=== PATIENT | male | born 1960 | race Caucasian/White ===

== ENCOUNTER 2021-10-11 12:32 | Emergency (ER) | payer OTHER, SELFPAY ==
[2021-10-11 12:38] VITALS: BP 133/71; PULSE 81; RESP 18; O2SAT 96; BMI 25.1
[2021-10-11 12:47] VITALS: BP 135/84; PULSE 90; RESP 18; O2SAT 98
--- NOTE | 2021-10-11 12:55 | ED_ITS ---
HPI - General Adult General: Chief complaint: General Medical Stated complaint: HYPOTENSION, ABD PAIN Time Seen by Provider: 10/11/21 12:39 History of Present Illness: Mr. Laguerre is a 61-year-old gentleman with history of hypertension, hyperlipidemia, diabetes who presents to the emergency department due to abdominal discomfort. He reports a few week history of symptoms which was subacute in onset. Since that time he has had intermittent episodes of right lower quadrant abdominal pain and most recently associated with constipation. He treated his symptoms with [id number] medications and has had bowel movement which mildly improved symptoms. Aching and twisting in quality, moderate to severe in intensity at worst. Nausea but no vomiting. No blood in stool. No urinary symptoms or radiation to the testicles. Does have a history of abdominal surgeries. Onset (ago): week(s) Severity: moderate Quality: aching and other Associated symptoms: Reports nausea Review of Systems General: Reports: 10 or more systems reviewed and unremarkable except in HPI and below GI: Reports: nausea [facility] ED PFSH: Medical History No significant past medical history Surgical History No significant past surgical history Physical Exam Const: COMMON NORMALS: alert GENERAL APPEARANCE: cooperative and well developed HENMT: COMMON NORMALS: normocephalic and atraumatic HEAD & SCALP: normocephalic and atraumatic Eye: COMMON NORMALS: conjunctivae normal CONJUNCTIVA: Yes conjunctivae normal SCLERA: sclerae normal Neck/C-Spine: COMMON NORMALS: supple GENERAL: Yes trachea midline Resp: COMMON NORMALS: clear to auscultation bilaterally EFFORT & INSPECTI ON: Yes able to speak in complete sentences AUSCULTATION: clear to auscultation bilaterally Cardio: COMMON NORMALS: regular rate and regular rhythm RATE: regular rate RHYTHM: regular rhythm GI: COMMON NORMALS: Soft to palpation PALPATION: Yes Soft to palpation, Yes Tenderness to palpation present (GI), No Guarding due to palpation present (GI) and No Rigid due to palpation PERCUSSION: normal to percussion Extremity: GENERAL: Yes normal exam except as noted and No edema Neuro: COMMON NORMALS: moves all extremities SENSORIUM/ORIENTATION: Yes alert and No Orientation impaired Psych: COMMON NORMALS: mental status grossly normal and Normal thought process present THOUGHT PROCESS: Normal thought process present Course ED course: - Patient was seen and evaluated by me at bedside - Patient placed on cardiac monitors, IV access obtained - Initial evaluation notable for exam as above. - Labs personally interpreted by me. EKG personally reviewed by me showing sinus rhythm with no STEMI. -Fluids and muscle relaxants ordered - Labs notable for minimal leukocytosis, normal hemoglobin. Metabolic panel with mild evidence of dehydration. Urinalysis nitrate positive though no bacteria or other acute abnormality identified. - Imaging notable for no acute abnormality to explain patient's symptoms on CT scan. - Upon serial reexamination after treatment the patient was improved. Tolerated p.o. intake. - Based on patient history, evaluation, and testing as interpreted the most likely cause of the patient's condition is dehydration and abdominal pain of uncertain etiology. - The results of ED evaluation were discussed with the patient including prescriptions and/or symptomatic cares (if applicable) including appropriate and responsible use, followup plan, and return precautions. The patient verbalized understanding and felt safe for discharge. - Patient discharged in satisfactory condition. Note: Click bubbles or prepopulated holley in note writing are used for assistance with data collection and billing and are inherently more limited than narrative and other text portions of this note. Please use narrative for additional clinical history and defer to narrative/free test for any case of contradictory information. If information appears in only free text or click bubble it should be considered present or absent as reported. Please contact note fha underwriter for clarifications of clinical information or contradictory information. MDM is a brief summary, contradictory or erroneous seeming information should be clarified and full note should be reviewed. Vital Signs: Vital signs: Vital Signs Pulse Rate 88 10/11/21 16:11 Respiratory Rate 18 10/11/21 16:11 Blood Pressure 190/109 10/11/21 16:11 Pulse Oximetry 95 10/11/21 16:11 MDM - General Adult Medical Decision Making 61-year-old gentleman presenting to the emergency department due to abdominal pain. No acute cause identified on CT. Labs notable for dehydration though patient tolerated p.o. intake. Satisfactory for outpatient management. Medical Records I reviewed the patient's medical records. Lab Data I reviewed the patient's lab results. : 10/11/21 12:20 10/11/21 12:20 Radiology Impressions Abdomen/Pelvis CT 10/11/21 14:19 IMPRESSION: 1. Prior appendectomy. 2. No renal stone or obstruction. 3. Minimal air distention of the colon with no obstruction. 4. Prior cholecystectomy. Laboratory Results WBC 10.5 10^3/uL (4.0-10.0) H 10/11/21 12:20 RBC 4.86 10^6/uL (4.1-5.3) 10/11/21 12:20 Hgb 14.6 g/dL (11.7-16.6) 10/11/21 12:20 Hct 42.0 % (42.0-52.0) 10/11/21 12:20 MCV 86.4 fl (80-94) 10/11/21 12:20 MCH 30.0 pg (28.0-34.0) 10/11/21 12:20 MCHC 34.8 g/dL (30.0-36.0) 10/11/21 12:20 RDW 12.9 % (12.1-15.1) 10/11/21 12:20 Plt Count 247 10^3/cmm (130-400) 10/11/21 12:20 MPV 10.2 fL (7.4-10.4) 10/11/21 12:20 Neut % (Auto) 67.6 % 10/11/21 12:20 Lymph % (Auto) 23.2 % 10/11/21 12:20 [place] % (Auto) 7.0 % 10/11/21 12:20 Eos % (Auto) 1.7 % 10/11/21 12:20 Baso % (Auto) 0.2 % 10/11/21 12:20 Neut # (Auto) 7.09 10^3/uL (1.8-7.7) 10/11/21 12:20 Lymph # (Auto) 2.4 10^3/uL (0.8-4.8) 10/11/21 12:20 [place] # (Auto) 0.7 10^3/uL (0.2-0.9) 10/11/21 12:20 Eos # (Auto) 0.2 10^3/uL (0.0-0.8) 10/11/21 12:20 Baso # (Auto) 0.0 10^3/uL (0.0-0.1) 10/11/21 12:20 Nucleated RBC % (auto) 0 % 10/11/21 12:20 Nucleated RBCs # 0.0 /100WBC 10/11/21 12:20 Sodium 131 mmol/L (136-145) L 10/11/21 12:20 Potassium 4.5 mmol/L (3.5-5.1) 10/11/21 12:20 Chloride 96 mmol/L (98-107) L 10/11/21 12:20 Carbon Dioxide 22 mmol/L (22-29) 10/11/21 12:20 Anion Gap 17.5 (5-19) 10/11/21 12:20 BUN 24 mg/dL (8-23) H 10/11/21 12:20 Creatinine 1.3 mg/dL (0.7-1.2) H 10/11/21 12:20 GFR Calculation 56.1 mL/min (90-130) L 10/11/21 12:20 Glucose 154 mg/dL (65-115) H 10/11/21 12:20 Calculated Osmolality 279 mOsm/kg (285-295) L 10/11/21 12:20 Lactate 1.0 mmol/L (0.5-2.2) 10/11/21 13:56 Calcium 9.7 mg/dL (8.5-10.5) 10/11/21 12:20 Total Bilirubin 0.3 mg/dL (0.15-1.2) 10/11/21 12:20 AST 12 U/L (0-40) 10/11/21 12:20 ALT 17 U/L (0-41) 10/11/21 12:20 Alkaline Phosphatase 80 IU/L (40-130) 10/11/21 12:20 Total Protein 8.1 g/dL (6.6-8.7) 10/11/21 12:20 Albumin 4.4 g/dL (3.5-5.2) 10/11/21 12:20 Globulin 3.7 g/dL (1.3-4.6) 10/11/21 12:20 Lipase 114 U/L (13-60) H 10/11/21 12:20 Urine Color Yellow (Yellow) 10/11/21 14:39 Urine Appearance Clear (CLEAR) 10/11/21 14:39 Urine pH 6.5 (5-7) 10/11/21 14:39 Ur Specific [place] 1.020 (1.005-1.030) 10/11/21 14:39 Urine Protein Neg (Negative) 10/11/21 14:39 Urine Glucose (UA) Norm (Normal) 10/11/21 14:39 Urine Ketones Negative (Negative) 10/11/21 14:39 Urine Blood Neg (Negative) 10/11/21 14:39 Urine Nitrate Positive (Negative) H 10/11/21 14:39 Urine Bilirubin Neg (Negative) 10/11/21 14:39 Urine Urobilinogen Norm mg/dL (Negative) 10/11/21 14:39 Ur Leukocyte Esterase Trace (Negative) H 10/11/21 14:39 Urine RBC 0-4 /hpf (0-2) H 10/11/21 14:39 Urine WBC 0-4 /hpf (0-5) H 10/11/21 14:39 Ur Squamous Epith Cells 0-4 /hpf (0-5) H 10/11/21 14:39 Amorphous Sediment Not Reportable 10/11/21 14:39 Urine Bacteria Trace /hpf (NONE) 10/11/21 14:39 Urine Mucus N /hpf 10/11/21 14:39 Discharge Plan Discharge Patient Disposition: Home Clinical Impression: Abdominal pain, Dehydration Condition: Stable Prescriptions: No Action ibuprofen 800 mg Tablet 800 mg PO TID PRN (Reason: Pain) 0RF tramadol 50 mg Tablet 50 mg PO Q4H PRN (Reason: Pain) 0RF metformin 1,000 mg Tablet 1,000 mg PO DAILY 0RF lidocaine 5 % Adhesive Patch,Medicated 1 patch TOPICAL DAILY 0RF Rx Instructions: leave on most painful area for up to 12 hrs albuterol sulfate 90 mcg/actuation Hfa Aerosol Inhaler 2 puff INHALATION QID PRN (Reason: Shortness Of Breath) 0RF lisinopril 40 mg Tablet 40 mg PO DAILY 0RF glipizide 5 mg Tablet 5 mg PO BID 0RF promethazine 25 mg tablet 25 mg PO Q6H PRN (Reason: nausea and vomiting) Qty: 20 0RF Discharge Orders: Discharge ED (Routine); Ordered 10/11/21 Ordered By: Darryn Palm Referrals: Iva Crook FNP [Primary Care Provider] - Discharge Diet: Advance as tolerated and Clear Liquid Discharge Activity: Increase activity as tolerated Patient Instructions: Abdominal Pain (ED), Opioid Safety Activity Restrictions/Additional Instructions: Thank you for visiting the emergency department. You were seen and evaluated for abdominal pain. The exact cause of your symptoms is unclear, it is most likely related to your constipation with resolved with [id number] treatment. You were found to be mildly dehydrated, please ensure that you are staying hydrated and have repeat labs drawn in 1 week to ensure improvement. Please follow-up with your primary care provider. Please keep your scheduled appointment for endoscopy. Please return to the emergency department for worsening symptoms or anything else that you are concerned about and feel needs emergency department evaluation. Coding Level of Care Code ED Farm Management Professor for Charlie Hillman
[2021-10-11 13:17] VITALS: BP 130/93; PULSE 85; O2SAT 97
[2021-10-11 13:34] LABS: Basophils % 0.2 %; Eosinophils # 0.2 10^3/uL (0.0-0.8); Eosinophils % 1.7 %; Hemoglobin 14.6 g/dL (11.7-16.6); Lymphocytes # 2.4 10^3/uL (0.8-4.8); Lymphocytes % 23.2 %; Mean Corpuscular HGB Conc 34.8 g/dL (30.0-36.0); Mean Corpuscular Volume 86.4 fl (80-94); Mean Platelet Volume 10.2 fL (7.4-10.4); Monocytes # 0.7 10^3/uL (0.2-0.9); Neutrophils # 7.09 10^3/uL (1.8-7.7); Neutrophils % 67.6 %; Nucleated Red Blood Cells % 0 %; Platelet Count 247 10^3/cmm (130-400); Red Blood Count 4.86 10^6/uL (4.1-5.3); Red Cell Distribution Width 12.9 % (12.1-15.1); White Blood Count 10.5 10^3/uL (4.0-10.0)
--- NOTE | 2021-10-11 13:35 | ECG_ITS ---
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 Measurements Intervals [place] Rate: 75 P: 58 AL: 150 QRS: 76 QRSD: 93 T: 64 QT: 373 QTc: 417 Interpretive Statements SINUS RHYTHM POSSIBLE RIGHT VENTRICULAR CONDUCTION DELAY [RSR (QR) IN V1/V2] No previous ECG available for comparison Electronically Signed On 10-12-2021 0:20:39 CDT by Susanna Locke M.D. [id number]
[2021-10-11] MEDS: diazePAM 5 mg Tablet PO (13:53)
[2021-10-11 13:54] LABS: Alanine Aminotransferase 17 U/L (0-41); Albumin Level 4.4 g/dL (3.5-5.2); Alkaline Phosphatase 80 IU/L (40-130); Anion Gap 17.5 (5-19); Aspartate Amino Transferase 12 U/L (0-40); Blood Urea Nitrogen 24 mg/dL (8-23); Calcium 9.7 mg/dL (8.5-10.5); Carbon Dioxide 22 mmol/L (22-29); Chloride 96 mmol/L (98-107); Globulin 3.7 g/dL (1.3-4.6); Glomerular Filtration Rate 56.1 mL/min (90-130); Glucose 154 mg/dL (65-115); Lipase 114 U/L (13-60); Osmolality Calculated 279 mOsm/kg (285-295); Potassium 4.5 mmol/L (3.5-5.1); Sodium 131 mmol/L (136-145); Total Bilirubin 0.3 mg/dL (0.15-1.2); Total Protein 8.1 g/dL (6.6-8.7)
[2021-10-11 14:00] VITALS: BP 135/84; PULSE 80; O2SAT 99
--- NOTE | 2021-10-11 14:19 | CT_ITS ---
WS: [id number] CT ABDOMEN AND PELVIS NONCONTRAST HISTORY: RLQ pain TECHNIQUE: Imaging performed through the abdomen and pelvis. Coronal and sagittal reformats are submi tted. All CT scans at [facility] use at least one of these dose optimization techniques: auto mated exposure control; mA and/or kV adjustment per patient size (includes targeted exams where dose is matched to clinical indication); or iterative reconstruction. DLP: 1505.99 mGy.cm COMPARISON: 11/25/2018 Lower thorax: Fibrotic changes at the lung bases. Heart is normal size. No hiatal hernia. Liver: Normal size liver. No mass or bile duct dilatation. Gallbladder: Prior cholecystectomy. Pancreas: Normal size and attenuation. Normal pancreatic duct. No pancreatitis or mass. Spleen: Spleen is top normal size at 12.9 cm in length. Similar to prior studies. Adrenal glands: Normal. No mass. Right kidney: Normal size kidney with no mass or hydronephrosis. Left kidney: Normal size kidney with no mass or hydronephrosis. Aorta: Mild atherosclerosis abdominal aorta with no aneurysm. No free fluid, intraperitoneal air or significant lymphadenopathy. GI tract: Prior appendectomy. No inflammatory changes in the RIGHT lower quadrant. Mild fluid distent ion of the stomach. No small bowel obstruction. There is a mild increased amount of air throughout th e colon but no obstruction. No mucosal thickening. Abdominal wall: Negative. No hernia. Pelvis: No free fluid in the pelvis. No adenopathy. Urinary bladder is well distended. Osseous structures: Moderate spondylitic changes in the lumbar spine. CT/CT abdomen pelvis wo con [id number] IMPRESSION: 1. Prior appendectomy. 2. No renal stone or obstruction. 3. Minimal air distention of the colon with no obstruction. 4. Prior cholecystectomy.
[2021-10-11 14:59] LABS: Leukocyte Esterase Urine Trace (Negative); Urine Appearance Clear (CLEAR); Urine Color Yellow (Yellow); pH Urine 6.5 (5-7)
[2021-10-11 15:00] VITALS: BP 143/96; PULSE 89; O2SAT 97
[2021-10-11 15:00] LABS: Add Urine Microscopic? YES; Bilirubin Urine Neg (Negative); Blood Urine Neg (Negative); Glucose Urine UA Norm (Normal); Ketones Urine Negative (Negative); Nitrate Urine Positive (Negative); Protein Urine Neg (Negative); Urobilinogen Urine Norm (Negative)
[2021-10-11 15:03] LABS: RBC Urine 0-4 /hpf (0-2); WBC Urine 0-4 /hpf (0-5)
[2021-10-11 15:05] LABS: Bacteria Urine TRACE /hpf; Mucus Urine N /hpf; Squamous Epithelial Cell Urine 0-4 /hpf (0-5)
[2021-10-11 15:06] LABS: Add Urine Culture? Yes
[2021-10-11] MEDS: sodium chloride 0.9% 1,000 ML 999 ML IV (15:12)
[2021-10-11 16:11] VITALS: BP 190/109; PULSE 88; RESP 18; O2SAT 95
== END 2021-10-11 16:05 | disposition home or self-care (01) ==
PROVIDERS: Emergency Provider Emergency Medicine; PCP Nurse Practitioner
DX: R10.9 Unspecified abdominal pain (principal); E86.0 Dehydration
CPT/HCPCS: 36415; 74176; 80053; 81001; 83605; 83690; 85025; 87040; 87086; 93005; 96360; 99284; J7030

== ENCOUNTER 2021-10-15 12:28 | Emergency (ER) | payer OTHER, SELFPAY ==
--- NOTE | 2021-10-15 12:31 | ECG_ITS ---
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 Measurements Intervals [place] Rate: 79 P: 61 W[place]: 148 QRS: 75 QRSD: 92 T: 71 QT: 374 QTc: 429 Interpretive Statements SINUS RHYTHM POSSIBLE RIGHT VENTRICULAR CONDUCTION DELAY [RSR (QR) IN V1/V2] Compared to ECG 10/11/2021 13:43:51 No significant changes Electronically Signed On 10-15-2021 17:36:33 CDT by Abby Ignacio M.D. [id number]
[2021-10-15 12:32] VITALS: BP 169/99; PULSE 84; RESP 14; TEMP 36.4; O2SAT 99; BMI 24.1
--- NOTE | 2021-10-15 12:44 | W.ED.ABDPA2 ---
HPI - Abdominal Pain General: Chief Complaint: Abdominal Pain Stated Complaint: abdomen pain Time Seen by Provider: 10/15/21 12:31 Source: patient Mode of arrival: ambulatory Limitations: no limitations History of Present Illness: 61-year-old male presents to the emergency room with complaint of abdominal pain. Patient reports abdominal pain for last couple weeks he was seen 3 days ago and evaluated with a CT which essentially was negative he reports he is not had any regular bowel movements for several days now he has tried he had tried various mxco-pnc-asjibeu medications to discharge home advised to use magnesium citrate he has had some magnesium citrate over the last day or 2 and has not had desired result. He denies any fever sweats or chills. he did have some blood in the stool several weeks ago and is being set up for a colonoscopy has not yet had it done. He denies any dysuria urgency or frequency. He states he feels a little bit hot and flushed at times but has not measured a temperature. No significant chest pain at this time no nausea vomiting or diarrhea no coffee-ground emesis or hematemesis. MD elicited complaint: abdominal pain Pertinent past history: constipation Onset (ago): week(s) (1) Pain Consistency: intermittent Location: Diffuse Severity: moderate Quality: cramping Radiation: none Migration to: no migration Exacerbating factors: nothing Relieving factors: nothing Associated Symptoms: Reports change in bowel habits, constipation and GI cramping; Denies anorexia, belching, bloating, change in stool character, chills, coffee ground emesis, dysuria, excessive flatus, fever(s), heartburn, hematochezia, fecal incontinence, loose stools, melena, nausea and vomiting Review of Systems Const: Denies: fever(s) or chills ENMT: Denies: throat pain, ear or mastoid pain, nasal discharge or nasal congestion Card: Denies: chest pain, edema, dyspnea on exertion or orthopnea Resp: Denies: dyspnea, productive cough or non-productive cough GI: Reports: constipation, GI cramping and change in bowel habits; Denies: nausea, vomiting, coffee ground emesis, heartburn, bloating, belching, excessive flatus, fecal incontinence, change in stool character, hematochezia or melena : Denies: flank pain, dysuria, urinary frequency or urinary urgency Skin/Breast: Denies: rash or pruritus [facility] ED PFSH: Medical History No significant past medical history Surgical History No significant past surgical history Physical Exam Const: COMMON NORMALS: no acute distress GENERAL APPEARANCE: cooperative and comfortable ORIENTATION/CONSCIOUSNESS: Yes awake, Yes oriented to person, Yes oriented to place and Yes oriented to time HENMT: COMMON NORMALS: normocephalic, atraumatic and hearing grossly normal bilaterally HEAD & SCALP: normocephalic and atraumatic Neck/C-Spine: COMMON NORMALS: no JVD Resp: COMMON NORMALS: normal respiratory effort, No retractions, No use of accessory muscles and clear to auscultation bilaterally AUSCULTATION: clear to auscultation bilaterally Cardio: COMMON NORMALS: no JVD, regular rate, regular rhythm and No murmurs present (Cardio) RATE: regular rate RHYTHM: regular rhythm GI: COMMON NORMALS: Soft to palpation and No hepatosplenomegaly present AUSCULTATION: Yes normoactive bowel sounds PALPATION: Yes Soft to palpation, No Tenderness to palpation present (GI), No Guarding due to palpation present (GI) and Yes No hepatosplenomegaly present Extremity: COMMON NORMALS: normal to inspection, capillary refill normal, no clubbing, cyanosis or edema, no calf tenderness and no pedal edema Neuro: SENSORIUM/ORIENTATION: Yes oriented to person, Yes oriented to place and Yes oriented to time Skin: COMMON NORMALS: no rashes or lesions noted GENERAL SKIN EXAM: no rashes or lesions noted Course Vital Signs: Vital signs: Vital Signs Temperature 97.6 F 10/15/21 12:32 Pulse Rate 84 10/15/21 14:42 Respiratory Rate 21 H 10/15/21 14:42 Blood Pressure 154/95 10/15/21 14:42 Pulse Oximetry 96 10/15/21 14:42 MDM - Abdominal Pain Medical Decision Making Reviewed findings with the patient we will discharge patient home. Recommend clear liquid diet for the next 24 to 48 hours he does have some retained stool he can use mag citrate for that. He has any worsening change symptoms return. Medical Records I reviewed the patient's medical records. Lab Data I reviewed the patient's lab results. : 10/15/21 12:45 10/15/21 12:45 Labs/Radiology: Radiology Impressions KUB X-Ray 10/15/21 14:06 IMPRESSION: No acute findings. Laboratory Results WBC 9.1 10^3/uL (4.0-10.0) 10/15/21 12:45 RBC 4.69 10^6/uL (4.1-5.3) 10/15/21 12:45 Hgb 14.3 g/dL (11.7-16.6) 10/15/21 12:45 Hct 40.7 % (42.0-52.0) L 10/15/21 12:45 MCV 86.8 fl (80-94) 10/15/21 12:45 MCH 30.5 pg (28.0-34.0) 10/15/21 12:45 MCHC 35.1 g/dL (30.0-36.0) 10/15/21 12:45 RDW 12.9 % (12.1-15.1) 10/15/21 12:45 Plt Count 221 10^3/cmm (130-400) 10/15/21 12:45 MPV 9.4 fL (7.4-10.4) 10/15/21 12:45 Neut % (Auto) 66.6 % 10/15/21 12:45 Lymph % (Auto) 22.9 % 10/15/21 12:45 [place] % (Auto) 7.8 % 10/15/21 12:45 Eos % (Auto) 2.3 % 10/15/21 12:45 Baso % (Auto) 0.2 % 10/15/21 12:45 Neut # (Auto) 6.06 10^3/uL (1.8-7.7) 10/15/21 12:45 Lymph # (Auto) 2.1 10^3/uL (0.8-4.8) 10/15/21 12:45 [place] # (Auto) 0.7 10^3/uL (0.2-0.9) 10/15/21 12:45 Eos # (Auto) 0.2 10^3/uL (0.0-0.8) 10/15/21 12:45 Baso # (Auto) 0.0 10^3/uL (0.0-0.1) 10/15/21 12:45 Nucleated RBC % (auto) 0 % 10/15/21 12:45 Nucleated RBCs # 0.0 /100WBC 10/15/21 12:45 Sodium 132 mmol/L (136-145) L 10/15/21 12:45 Potassium 4.4 mmol/L (3.5-5.1) 10/15/21 12:45 Chloride 96 mmol/L (98-107) L 10/15/21 12:45 Carbon Dioxide 24 mmol/L (22-29) 10/15/21 12:45 Anion Gap 16.4 (5-19) 10/15/21 12:45 BUN 15 mg/dL (8-23) 10/15/21 12:45 Creatinine 1.1 mg/dL (0.7-1.2) 10/15/21 12:45 GFR Calculation 68.1 mL/min (90-130) L 10/15/21 12:45 Glucose 98 mg/dL (65-115) 10/15/21 12:45 Calculated Osmolality 275 mOsm/kg (285-295) L 10/15/21 12:45 Calcium 8.7 mg/dL (8.5-10.5) 10/15/21 12:45 Total Bilirubin 0.4 mg/dL (0.15-1.2) 10/15/21 12:45 AST 9 U/L (0-40) 10/15/21 12:45 ALT 13 U/L (0-41) 10/15/21 12:45 Alkaline Phosphatase 76 IU/L (40-130) 10/15/21 12:45 Total Protein 7.5 g/dL (6.6-8.7) 10/15/21 12:45 Albumin 4.4 g/dL (3.5-5.2) 10/15/21 12:45 Globulin 3.1 g/dL (1.3-4.6) 10/15/21 12:45 Lipase 146 U/L (13-60) H 10/15/21 12:45 Urine Color Straw (Yellow) 10/15/21 13:05 Urine Appearance Clear (CLEAR) 10/15/21 13:05 Urine pH 7 (5-7) 10/15/21 13:05 Ur Specific [place] 1.005 (1.005-1.030) 10/15/21 13:05 Urine Protein Neg (Negative) 10/15/21 13:05 Urine Glucose (UA) Trace (Normal) H 10/15/21 13:05 Urine Ketones Negative (Negative) 10/15/21 13:05 Urine Blood Neg (Negative) 10/15/21 13:05 Urine Nitrate Negative (Negative) 10/15/21 13:05 Urine Bilirubin Neg (Negative) 10/15/21 13:05 Urine Urobilinogen Norm mg/dL (Negative) 10/15/21 13:05 Ur Leukocyte Esterase Negative (Negative) 10/15/21 13:05 Discharge Plan Discharge Patient Disposition: Home Clinical Impression: Abdominal pain, Constipation, Gastroenteritis Condition: Stable Prescriptions: New promethazine 25 mg tablet 25 mg PO Q6H PRN (Reason: nausea and vomiting) Qty: 20 0RF No Action ibuprofen 800 mg Tablet 800 mg PO TID PRN (Reason: Pain) 0RF tramadol 50 mg Tablet 50 mg PO Q4H PRN (Reason: Pain) 0RF metformin 1,000 mg Tablet 1,000 mg PO DAILY 0RF lidocaine 5 % Adhesive Patch,Medicated 1 patch TOPICAL DAILY 0RF Rx Instructions: leave on most painful area for up to 12 hrs albuterol sulfate 90 mcg/actuation Hfa Aerosol Inhaler 2 puff INHALATION QID PRN (Reason: Shortness Of Breath) 0RF lisinopril 40 mg Tablet 40 mg PO DAILY 0RF glipizide 5 mg Tablet 5 mg PO BID 0RF Discharge Orders: Discharge ED (Routine); Ordered 10/15/21 Ordered By: Davis Edgar Referrals: Iva Crook FNP [Primary Care Provider] - Discharge Diet: Clear Liquid Discharge Activity: Increase activity as tolerated Patient Instructions: Abdominal Pain (ED), Opioid Safety Activity Restrictions/Additional Instructions: Clear liquid diet for 24 to 48 hours then advance as tolerated. Coding Level of Care Code ED Log Inspector for Charlie Hillman
[2021-10-15 12:59] LABS: Basophils % 0.2 %; Eosinophils # 0.2 10^3/uL (0.0-0.8); Eosinophils % 2.3 %; Hematocrit 40.7 % (42.0-52.0); Hemoglobin 14.3 g/dL (11.7-16.6); Lymphocytes # 2.1 10^3/uL (0.8-4.8); Lymphocytes % 22.9 %; Mean Corpuscular HGB Conc 35.1 g/dL (30.0-36.0); Mean Corpuscular Hemoglobin 30.5 pg (28.0-34.0); Mean Corpuscular Volume 86.8 fl (80-94); Mean Platelet Volume 9.4 fL (7.4-10.4); Monocytes # 0.7 10^3/uL (0.2-0.9); Monocytes % 7.8 %; Neutrophils # 6.06 10^3/uL (1.8-7.7); Neutrophils % 66.6 %; Nucleated Red Blood Cells % 0 %; Platelet Count 221 10^3/cmm (130-400); Red Blood Count 4.69 10^6/uL (4.1-5.3); Red Cell Distribution Width 12.9 % (12.1-15.1); White Blood Count 9.1 10^3/uL (4.0-10.0)
[2021-10-15 13:07] LABS: Add Urine Microscopic? NO; Charge for UA Resulting for Rev
[2021-10-15 13:14] LABS: Bilirubin Urine Neg (Negative); Blood Urine Neg (Negative); Glucose Urine UA Trace (Normal); Ketones Urine Negative (Negative); Leukocyte Esterase Urine Negative (Negative); Nitrate Urine Negative (Negative); Protein Urine Neg (Negative); Specific Gravity, Urine 1.005 (1.005-1.030); Urine Appearance Clear (CLEAR); Urine Color Straw (Yellow); Urobilinogen Urine Norm (Negative); pH Urine 7 (5-7)
[2021-10-15 13:32] LABS: Alanine Aminotransferase 13 U/L (0-41); Albumin Level 4.4 g/dL (3.5-5.2); Alkaline Phosphatase 76 IU/L (40-130); Anion Gap 16.4 (5-19); Aspartate Amino Transferase 9 U/L (0-40); Blood Urea Nitrogen 15 mg/dL (8-23); Calcium 8.7 mg/dL (8.5-10.5); Carbon Dioxide 24 mmol/L (22-29); Chloride 96 mmol/L (98-107); Globulin 3.1 g/dL (1.3-4.6); Glomerular Filtration Rate 68.1 mL/min (90-130); Glucose 98 mg/dL (65-115); Lipase 146 U/L (13-60); Osmolality Calculated 275 mOsm/kg (285-295); Potassium 4.4 mmol/L (3.5-5.1); Sodium 132 mmol/L (136-145); Total Bilirubin 0.4 mg/dL (0.15-1.2); Total Protein 7.5 g/dL (6.6-8.7)
--- NOTE | 2021-10-15 14:06 | XRR_ITS ---
PROCEDURE INFORMATION: Exam: XR Abdomen Exam date and time: 10/15/2021 2:19 PM Age: 61 years old Clinical indication: Abdominal pain; Generalized; Additional info: Abd pain TECHNIQUE: Imaging protocol: XR of the abdomen. Views: Frontal supine view of the abdomen. 1 View. COMPARISON: CT abdomen pelvis con [id number] 10/11/2021 2:33 PM FINDINGS: Gastrointestinal tract: Air-filled loops of bowel and colon, not pathologically distended. 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 XR/XR KUB portable [id number] IMPRESSION: No acute findings.
[2021-10-15] MEDS: ketorolac 30 mg/mL INJ IVP (14:15)
[2021-10-15] MEDS: promethazine 25 mg/mL SDV 1 mL IM (14:38)
[2021-10-15 14:42] VITALS: BP 154/95; PULSE 84; RESP 21; O2SAT 96
== END 2021-10-15 15:10 | disposition home or self-care (01) ==
PROVIDERS: Emergency Provider Family Medicine; PCP Nurse Practitioner
DX: K59.00 Constipation, unspecified (principal); K52.9 Noninfective gastroenteritis and colitis, unspecified
CPT/HCPCS: 74018; 80053; 81003; 83690; 85025; 93005; 96372; 96374; 99284; J1885; J2550

== ENCOUNTER → 2021-11-22 14:09 | Outpatient (BNVA) | payer OTHER, SELFPAY | PROVIDERS: PCP Nurse Practitioner; Referring Provider Nurse Practitioner; Visit Provider Internal Medicine | DX: E11.9 Type 2 diabetes mellitus without complications (principal); M62.50 Muscle wasting and atrophy, not elsewhere classified, unspecified site; R10.9 Unspecified abdominal pain; F17.200 Nicotine dependence, unspecified, uncomplicated; Z79.84 Long term (current) use of oral hypoglycemic drugs | CPT/HCPCS: 83690; 99204 ==

== ENCOUNTER → 2022-02-25 10:31 | Outpatient (BNVA) | payer OTHER, SELFPAY | PROVIDERS: PCP Nurse Practitioner; Visit Provider Internal Medicine | DX: E11.9 Type 2 diabetes mellitus without complications (principal); M62.50 Muscle wasting and atrophy, not elsewhere classified, unspecified site; R10.9 Unspecified abdominal pain; F17.200 Nicotine dependence, unspecified, uncomplicated; Z79.84 Long term (current) use of oral hypoglycemic drugs | CPT/HCPCS: 99214 ==

== ENCOUNTER 2022-02-28 08:03 | Outpatient (CLI) | payer OTHER, SELFPAY ==
[2022-02-28 09:01] LABS: Testosterone Total 347.3 ng/dL (193-740)
[2022-03-04 18:58] LABS: Testosterone, Free 32.4 pg/mL (46.0-224.0)
== END 2022-02-28 08:04 | disposition home or self-care (01) ==
LOC: LAB 08:04
PROVIDERS: PCP Nurse Practitioner; Visit Provider Internal Medicine
DX: M62.50 Muscle wasting and atrophy, not elsewhere classified, unspecified site (principal); R10.9 Unspecified abdominal pain
CPT/HCPCS: 36415; 84402; 84403

== ENCOUNTER 2022-03-26 08:27 | Outpatient (CLI) | payer OTHER, SELFPAY ==
[2022-03-27 15:04] LABS: Sex Hormone Binding Globulin 38 nmol/L (22-77)
[2022-03-30 06:27] LABS: Testosterone, Free 18.4 pg/mL (46.0-224.0)
== END 2022-03-26 08:28 | disposition home or self-care (01) ==
LOC: LAB 08:29
PROVIDERS: PCP Nurse Practitioner; Visit Provider Internal Medicine
DX: M62.50 Muscle wasting and atrophy, not elsewhere classified, unspecified site (principal)
CPT/HCPCS: 84270; 84402

== ENCOUNTER → 2022-05-13 08:07 | Outpatient (BNVA) | payer OTHER, SELFPAY | PROVIDERS: PCP Nurse Practitioner; Visit Provider Internal Medicine | DX: E11.9 Type 2 diabetes mellitus without complications (principal); R10.9 Unspecified abdominal pain; R79.89 Other specified abnormal findings of blood chemistry; E78.2 Mixed hyperlipidemia; M62.50 Muscle wasting and atrophy, not elsewhere classified, unspecified site; Z79.84 Long term (current) use of oral hypoglycemic drugs | CPT/HCPCS: 36415; 83690; 99214 ==

== ENCOUNTER → 2022-12-12 09:02 | Outpatient (BNVA) | payer OTHER, SELFPAY | PROVIDERS: PCP Nurse Practitioner; Visit Provider Internal Medicine Pulmonary Disease | DX: J98.6 Disorders of diaphragm (principal); R06.02 Shortness of breath; F17.210 Nicotine dependence, cigarettes, uncomplicated; R05.3 Chronic cough; Z95.1 Presence of aortocoronary bypass graft | CPT/HCPCS: 99204 ==